=== PATIENT | female | born 2000 | race African-American/Black ===

== ENCOUNTER 2025-07-16 14:19 | Emergency (ER) | payer OTHER ==
[~2025-07-16] VITALS: Ht 172.7 cm; Wt 77.1 kg
[2025-07-16 15:19] LABS: APPEARANCE,URINE CLEAR (CLEAR); BLOOD, URINE NEGATIVE Ery/uL (NEGATIVE); LEUKOCYTE ESTERASE ,URINE TRACE (NEGATIVE); NITRITE, URINE NEGATIVE (NEGATIVE); UGLUCOSE NEGATIVE (NEGATIVE)
[2025-07-16 15:24] LABS: PREGNANCY TEST URINE QUAL NEGATIVE (NEGATIVE)
[2025-07-16 15:29] LABS: PLATELET COUNT (AUTO) 284 K/uL (150-450); RED BLOOD CELL COUNT(AUTO) 4.23 MIL/uL (4.0-5.2); RED CELL DISTRIBUTION WIDTH 14.0 % (11.5-15.0); WHITE BLOOD COUNT (AUTO) 3.6 K/uL (4.3-11.0)
[2025-07-16 15:30] LABS: ADD URINE CULTURE NO
[2025-07-16 15:36] LABS: CALCIUM, SERUM 8.8 mg/dL (8.5-10.1); CREATININE 1.1 mg/dL (0.6-1.3); SODIUM SERUM 138.0 mmol/L (136-145); UREA NITROGEN, BLOOD 12.0 mg/dL (7-18)
[2025-07-16 15:42] LABS: ASPARTATE AMINOTRANSFERASE 23.0 U/L (15-37); TOTAL PROTEIN, SERUM 7.9 g/dL (6.4-8.2)
[2025-07-16 16:36] VITALS: BP 110/61; TEMP 98; O2SAT 97
== END 2025-07-16 16:37 | disposition home or self-care (01) ==
LOC: EDBD 14:33 → ER 14:33
DX: R10.2 Pelvic and perineal pain (principal); N83.202 Unspecified ovarian cyst, left side; R14.0 Abdominal distension (gaseous)
CPT/HCPCS: 36415; 76856-TC; 80048-TC; 80076-TC; 81001; 84703-TC; 85025-TC